=== PATIENT | male | born 1950 | race Caucasian/White ===

== ENCOUNTER → 2021-05-12 12:36 | Outpatient (CLI) | payer OTHER, SELFPAY ==
--- NOTE | 2021-05-12 12:38 | ECHOD_ITS ---
Reason For Study: CAD/ASHD Procedure This was a 2D Doppler, Color Flow transthoracic echocardiogram. The study was technically difficult. Exam performed in department. Left Ventricle Normal LV size. Left ventricular systolic function is normal. The estimated ejection fraction is 60 %. Unable to assess diastolic dysfunction. No regional wall motion abnormalities noted. Right Ventricle Normal RV size. ICD or pacer leads identified within the right ventricle. Normal systolic function. Atria The left atrium is moderately enlarged. The right atrium is moderately enlarged. ICD or pacer leads identified within the right atrium. No doppler evidence for ASD. Mitral Valve Mild diffuse mitral valve thickening. Moderate (2+) mitral valve insufficiency. Tricuspid Valve Normal tricuspid valve. Moderately severe (3+) eccentric tricuspid valve insufficiency. Right ventricular systolic pressure estimated to be 38 mmHg. Aortic Valve The aortic valve is not well visualized, especially in the short axis view, however, based upon the images obtained there appears to be an element of focal thickening and calcification present. Mild (1+) aortic valve insufficiency. Pulmonic Valve The pulmonic valve is not well visualized. Great Vessels Mild to moderately dilated aortic root. Pericardium/Pleural No pericardial effusion. MMode/2D Measurements & Calculations Ao root diam: 4.3 cm LAV(MOD-bp): 125.5 ml LA A4 area: 31.7 cm2 LAV(MOD-bp) Indexed: 58.4 ml/m2 LAV(MOD-sp2): 116.1 ml LAV(MOD-sp4): 122.7 ml LA dimension(2D): 4.7 cm RA A4 area: 30.8 cm2 Doppler Measurements & Calculations MV E max shirley: 118.1 cm/sec Ao V2 max: 164.4 cm/sec AI max shirley: 434.7 cm/sec Ao max P.8 mmHg AI max P.6 mmHg Ao V2 mean: 108.5 cm/sec AI dec slope: 285.8 cm/sec2 Ao mean P.3 mmHg AI P1/2t: 445.6 msec Ao V2 VTI: 29.2 cm LV V1 max: 99.9 cm/sec PA V2 max: 77.0 cm/sec TR max shirley: 295.1 cm/sec LV V1 max P.0 mmHg TR max P.8 mmHg LV V1 mean P.0 mmHg LV V1 mean: 66.8 cm/sec LV V1 VTI: 20.7 cm ECHO/Echo Complete Interpretation Summary The study was technically difficult. Left ventricular systolic function is normal. The estimated ejection fraction is 60 %. The left atrium is moderately enlarged. The right atrium is moderately enlarged. Mild diffuse mitral valve thickening. Moderate (2+) mitral valve insufficiency. Moderately severe (3+) eccentric tricuspid valve insufficiency. The aortic valve is not well visualized, especially in the short axis view, how ever, based upon the images obtained there appears to be an element of focal thickening and calcific ation present. Mild (1+) aortic valve insufficiency. Mild to moderately dilated aortic root. Right ventricular systolic pressure estimated to be 38 mmHg. Unable to assess diastolic dysfunction. ICD or pacer leads identified within the right atrium ICD or pacer leads identified within the right ventricle. Comment: Based upon the 2D echocardiographic images obtained there appears to b e an echodensity (bright) appearing compatible with calcification noted in the parasternal long axis view near the base of the anterior mitral valve leaflet/aortic valve area. Ordering Physician: XUAN BROOKS Referring Physician: Gil Lobo Performed By: Reyna Benitez RDCS, RVT
== END ==
PROVIDERS: PCP Family Medicine
DX: I25.10 Atherosclerotic heart disease of native coronary artery without angina pectoris (principal)
CPT/HCPCS: 93306

== ENCOUNTER 2025-03-03 22:26 | Inpatient (IN) | payer MEDICARE, OTHER, SELFPAY ==
[2025-03-03 22:27] VITALS: BP 127/100; PULSE 87; RESP 16; TEMP 36.4; O2SAT 96; BMI 25.5
[2025-03-03 22:31] VITALS: BP 127/100; PULSE 89; RESP 24; TEMP 36.4; O2SAT 95
--- NOTE | 2025-03-03 22:47 | CT_ITS ---
PROCEDURE: BRAIN/HEAD WITHOUT CONTRAST 03/03/2025 REASON FOR EXAM: SYNCOPE TECHNIQUE: Head CT without intravenous contrast. Coronal and Sagittal reconstruction series were provided. One or more dose reduction techniques were used (e.g., Automated exposure control, adjustment of the mA and/or kV according to patient size, use of iterative reconstruction technique. RADIATION DOSE SUMMARY: CTDlvol: 45 mGy DLP: 846 mGycm COMPARISON: None FINDINGS: Brain: Normal CSF Spaces: Mild generalized cerebral atrophy Sinuses/Mastoids: Clear at visualized levels Bones: Unremarkable CT/Brain/Head without Contrast IMPRESSION: NO ACUTE FINDINGS Reading Location: [facility]
--- NOTE | 2025-03-03 22:47 | CT_ITS ---
PROCEDURE: SPINE CERVICAL WITHOUT CONTRAS 03/03/2025 REASON FOR EXAM: NECK PAIN S/P FALL TECHNIQUE: Cervical spine CT without contrast. Coronal and Sagittal reconstruction series were provided. One or more dose reduction techniques were used (e.g., Automated exposure control, adjustment of the mA and/or kV according to patient size, use of iterative reconstruction technique RADIATION DOSE SUMMARY: CTDlvol: 20 mGy DLP: 442 mGycm COMPARISON: None FINDINGS: Alignment: Straightening of the cervical alignment likely due to positioning. Vertebrae: Status post anterior cervical spine fusion hardware with fixation plates and screws transversing the cervical spine. No acute fracture. Multilevel uncovertebral arthropathy. Discs: Multilevel narrowing of the intervertebral disc spaces. Soft Tissues: Unremarkable Other: Carotid artery calcifications. CT/Spine Cervical without Contras IMPRESSION: No acute fracture or subluxation. Reading Location: [facility]
--- NOTE | 2025-03-03 22:47 | EKG12_ITS ---
Test Reason : DYSRHYTHMIA Blood Pressure : */* mmHG Vent. Rate : 70 BPM Atrial Rate : * BPM P-R Int : * ms QRS Dur : 94 ms QT Int : 468 ms P-R-T Axes : * 28 -35 degrees QTcB Int : 505 ms Atrial fibrillation with frequent VENT PACED COMPLEXES and with premature ventricular or aberrantly conducted complexes Nonspecific ST and T wave abnormality Prolonged QT Abnormal ECG Confirmed by Dario Oliveira ([id number]), business editor DARSHANA MCCLURE ([id number]) on 03/10/2025 1:00:01 PM Referred By: BEE Confirmed By: Dario Oliveira
--- NOTE | 2025-03-03 22:49 | EX.ED.DYSGE1 ---
HPI History of Present Illness Chief Complaint: Syncope Informant: patient, family and EMS Narrative Narrative: Patient is a 74-year-old male with past medical history of coronary artery disease congestive heart failure and atrial fibrillation status post pacemaker insertion. He states this evening he was trying to clean out his icemaker when he felt lightheaded and then had a brief episode of syncope where he fell forward and struck the refrigerator with his forehead. He states that he remembers feeling lightheaded and weak and falling. He states he was awake shortly after striking the ground. He denies any loss of bowel or bladder control. He denies any palpitations prior to the event. He states that there has been no recent bouts of vomiting or diarrhea or loss of blood in the urine or stool. He reports a longstanding history of A-fib with multiple ablations and states he does not take a blood thinner. As the patient had a syncopal event and also struck his head family called EMS and he was brought in for evaluation [facility] Medical History (Updated 03/04/25 @ 03:04 by Xochitl Saba) Pacemaker Congestive heart failure (CHF) Hypertension Home Medications ?Medication ?Instructions ?Recorded ?Last Taken ?Type albuterol sulfate 90 mcg/actuation 2 puff inhalation Q4H PRN PRN 03/04/25 03/03/25 History aerosol inhaler wheezing atorvastatin 80 mg tablet 80 mg PO DAILY 03/04/25 03/03/25 History dofetilide 250 mcg capsule 250 mcg PO BID 03/04/25 03/03/25 History doxazosin 4 mg tablet 4 mg PO QHS 03/04/25 03/03/25 History furosemide 40 mg tablet 40 mg PO DAILY 03/04/25 Unknown History hydralazine 100 mg tablet 100 mg PO Q12H Blood pressure 03/04/25 03/03/25 History isosorbide dinitrate 10 mg tablet 10 mg PO BID 03/04/25 03/03/25 History losartan 100 mg tablet 100 mg PO DAILY 03/04/25 03/03/25 History metoprolol tartrate 50 mg tablet 50 mg PO BID 03/04/25 03/03/25 History spironolactone 25 mg tablet 25 mg PO BID 03/04/25 03/03/25 History tamsulosin 0.4 mg capsule 0.4 mg PO DAILY 03/04/25 03/03/25 History trazodone 100 mg tablet 100 mg PO QHS 03/04/25 03/03/25 History Allergy/AdvReac Type Severity Reaction Status Date / Time ciprofloxacin (From Cipro) Allergy Mild Hives Verified 03/03/25 22:27 amiodarone AdvReac Unknown thyroid Verified 03/03/25 22:27 issues Social History Smoking Status: Current every day smoker tobacco type: cigarettes ROS ROS ED Constitutional Constitutional ED: Denies chills or fever(s) Eyes Eyes: Denies blurry vision or change in vision ENT ENT ED: Denies rhinorrhea or sore throat Cardiovascular Cardiovascular: Reports other Details: Positive syncope ; Denies chest pain, palpitations or racing heartbeat Respiratory/Chest Respiratory/Chest: Denies cough or dyspnea Gastrointestinal Gastrointestinal: Denies abdominal pain, diarrhea, nausea or vomiting Genitourinary Genitourinary ED: Denies dysuria, hematuria or urinary frequency Musculoskeletal Musculoskeletal: Reports neck pain; Denies back pain Integumentary Reports Abrasions Neurologic Neurologic: Denies headache(s), paresthesias or weakness Hematologic/Lymphatic Hematologic/Lymphatic: Denies easy bleeding or easy bruising EXAM Physical Exam Const Vital Signs: 03/03/25 22:26 03/03/25 22:27 03/03/25 22:31 Temperature 97.5 F L 97.5 F L Temperature Source Oral Oral Pulse Rate 87 89 Pulse Rate [Lying] Pulse Rate [Sitting (for 1 minute prior to obtaining)] Pulse Rate [Standing (for 1 minute prior to obtaining)] Respiratory Rate 16 24 H Respiratory Effort Normal Non-Labored Blood Pressure 127/100 H 127/100 H Blood Pressure [Lying] Blood Pressure [Sitting (for 1 minute prior to obtaining)] Blood Pressure [Standing (for 1 minute prior to obtaining)] Blood Pressure Mean 109 109 Blood Pressure Mean [Lying] Blood Pressure Mean [Sitting (for 1 minute prior to obtaining)] Blood Pressure Mean [Standing (for 1 minute prior to obtaining)] Pulse Ox 96 95 Oxygen Delivery Method Room Air Room Air 03/03/25 23:38 03/04/25 00:00 03/04/25 01:00 Temperature 97.5 F L 97.4 F L Temperature Source Temporal Temporal Pulse Rate 84 94 Pulse Rate [Lying] 101 H Pulse Rate [Sitting (for 1 minute prior to obtaining)] 66 Pulse Rate [Standing (for 1 minute prior to obtaining)] 85 Respiratory Rate 26 H 25 H Respiratory Effort Blood Pressure 136/70 H 122/66 H Blood Pressure [Lying] 125/71 H Blood Pressure [Sitting (for 1 minute prior to obtaining)] 121/77 H Blood Pressure [Standing (for 1 minute prior to obtaining)] 91/53 L Blood Pressure Mean 92 84 Blood Pressure Mean [Lying] 89 Blood Pressure Mean [Sitting (for 1 minute prior to obtaining)] 91 Blood Pressure Mean [Standing (for 1 minute prior to obtaining)] 65 Pulse Ox 92 94 Oxygen Delivery Method Room Air Room Air 03/04/25 01:12 03/04/25 01:36 Temperature 97.9 F Temperature Source Pulse Rate 71 Pulse Rate [Lying] 87 Pulse Rate [Sitting (for 1 minute prior to obtaining)] 86 Pulse Rate [Standing (for 1 minute prior to obtaining)] 94 Respiratory Rate 17 Respiratory Effort Blood Pressure 122/61 H Blood Pressure [Lying] 88/54 L Blood Pressure [Sitting (for 1 minute prior to obtaining)] 105/69 Blood Pressure [Standing (for 1 minute prior to obtaining)] 122/66 H Blood Pressure Mean 81 Blood Pressure Mean [Lying] 65 Blood Pressure Mean [Sitting (for 1 minute prior to obtaining)] 81 Blood Pressure Mean [Standing (for 1 minute prior to obtaining)] 84 Pulse Ox 94 Oxygen Delivery Method Positive well nourished and well developed General Appearance ED: well developed; Negative for pallor HEENT HEENT Narrative: Patient has a small 1 x 1 cm hematoma to the midportion of his forehead/frontal bone consistent report of striking his head on the refrigerator. There is a superficial epidermal layer abrasion at the site as well. No active bleeding noted. No signs of depressed or basilar skull fracture Eyes PERRL and EOMs intact bilaterally Eyes Narrative: No hyphema noted General Eye ED: Negative for scleral icterus Neck Neck Narrative: No bony deformity or step-off of the cervical spine no midline tenderness to palpation There is right paracervical tension and spasm noted with pain palpation along the right SCM muscle belly. Chest Wall palpation of chest normal Chest Narrative: No bony deformity or crepitance noted Resp normal respiratory effort Resp Narrative: Breath sounds are diminished throughout with faint crackles noted in the bilateral bases No signs of respiratory distress Cardio regular rate Rate: other Other Details: Irregularly irregular rhythm with regular rate consistent with past medical history of atrial fibrillation There are frequent ectopic beats noted Radial and carotid pulses are equal and symmetric GI normal to inspection, nondistended, normoactive bowel sounds, non-tender, non-distended and no masses GI Narrative: No voluntary guarding or rigidity or pulsatile mass Auscultation: normoactive bowel sounds Palpation: soft Back/Spine Back/Spine Narrative: No bony deformity or step-off of the thoracic or lumbar spine no midline tenderness to palpation Extremity normal to inspection Extremity Narrative: Pelvis is stable there is no shortening or external rotation of either lower extremity Patient can move all extremities without pain No signs of long bone injury No asymmetric edema no pitting edema negative Homans' sign bilaterally All compartments are soft and compressible going against compartment syndrome Neuro oriented x3, CN's II-XII intact bilaterally and no sensory deficits noted Neuro Narrative: GCS of 15 Cranial nerves II through XII are grossly intact without focal neurologic deficit No pronator drift no dysmetria no truncal ataxia NIH stroke scale score of 0 Sensorium / Orientation: alert Motor Exam: strength 5/5 throughout Psych mental status grossly normal Skin No skin turgor normal Skin Narrative: Hematoma to the forehead with superficial abrasion as documented above Skin turgor is slightly increased General Skin Exam: Negative for pallor MDM MDM MDM Narrative Medical decision making narrative: Patient arrived to the ER awake and alert with stable vitals. He reported a syncopal event and history and physical exam are most consistent with syncope due to orthostasis. As he struck his head there is concern for traumatic skull fracture versus subarachnoid or subdural hemorrhage. In order to ensure that his syncope was also not due to acute blood loss anemia acute kidney injury or clinically significant electrolyte abnormality basic blood work was obtained. Patient is anemic with hemoglobin of 10.4 but he reports this is his baseline. Creatinine is also elevated at approximately 1.6 which patient states is baseline as well. Head and cervical spine CT showed no signs of acute trauma. The patient orthostatic vital signs were positive despite receiving 1 L by EMS and therefore he was given a second liter. Repeat orthostatics were still positive despite 2 L of IV fluid. With the patient's history of congestive heart failure I do not feel that continuing with fluid boluses was appropriate if he was not going to be monitored for potential development of CHF exacerbation. Therefore I discussed the case with the hospitalist who agrees to accept the patient for continued care Of note the radiologist documented effusions versus infiltrate on chest x-ray. Clinically this would be effusions as he has a history of CHF and crackles on exam and he does not have a fever cough or white count going against an infectious process so do not feel there is need for antibiotics. History & Record Review Discussion w/independent historian: EMS personnel, Patient and Family Lab Data Attestation: I reviewed the patient's lab results. Labs: Laboratory Results - last 24 hr 03/03/25 22:35 WBC 4.9 RBC 3.39 L Hgb 10.4 L Hct 31.3 L MCV 92.3 MCH 30.7 MCHC 33.2 RDW Std Deviation 49.3 H RDW Coeff of [place] 14.6 Plt Count 164 MPV 9.5 Immature Gran % (Auto) 1.000 H Neut % (Auto) 76.1 H Lymph % (Auto) 11.2 L [place] % (Auto) 10.3 H Eos % (Auto) 0.8 Baso % (Auto) 0.6 Absolute Neuts (auto) 3.8 Absolute Lymphs (auto) 0.55 L Nucleated RBC % 0 Sodium 130 L Potassium 4.3 Chloride 98 Carbon Dioxide 20.7 L Anion Gap 11 BUN 25 H Creatinine 1.56 H Estim Creat Clear Calc 41.54 L Est GFR (MDRD) Non-Af 46 L BUN/Creatinine Ratio 16.0 Glucose 115 H Calcium 8.7 Magnesium 1.9 Radiography Diagnostic Testing: Clinical Impression(s) from Imaging Studies Brain CT 03/03/25 22:47 IMPRESSION: NO ACUTE FINDINGS [facility] 03/03/25 22:47 IMPRESSION: No acute fracture or subluxation. Reading Location: [facility] Chest X-Ray 03/03/25 23:00 IMPRESSION: Retrocardiac opacity and left basilar opacification, likely representing effusion/infiltrates. [facility] Chest x-ray is interpreted by the emergency medicine physician reveals hazy opacity in the lower lungs most consistent with pleural effusion Management Discussion w/another healthcare provider: Hospitalist Discharge Plan Dx/Rx/DC Orders Clinical Impression: Orthostatic syncope, Chronic renal insufficiency, Chronic anemia, Atrial fibrillation Disposition Disposition: Acute Care Hospital [facility] Discharge Date/Time: 03/04/25 02:01
[2025-03-03 22:57] LABS: Absolute Lymphocyte Count 0.55 X10^3/uL (0.83-4.51); Absolute Neutrophil Count 3.8 X10^3/uL (2.0-7.7); Basophil# 0.03 X10^3/uL; Basophil% 0.6 % (0-1); Eosinophil# 0.04 X10^3/uL; Eosinophils% 0.8 % (0-5); Hematocrit 31.3 % (40-54); Hemoglobin 10.4 g/dL (13.0-16.5); Lymphocyte # 0.55 X10^3/ul (0.83-4.51); Lymphocyte % 11.2 % (19-41); Mean Corp Hgb Conc 33.2 g/dL (32-36); Mean Corpuscular Hgb 30.7 pg (27.0-32.0); Mean Corpuscular Volume 92.3 fL (80-94); Mean Platelet Vol. 9.5 fl (6.2-12.0); Monocyte# 0.51 X10^3/uL; Monocyte% 10.3 % (0-10); NRBC Flagged by Analyzer 0 % (0-5); Neutrophil # 3.75 X10^3/uL (2.7-7.7); Neutrophil % 76.1 % (47-70); POSITIVE DIFFERENTIAL YES; Platelet Count 164 K/mm3 (150-450); RBC Distribution Width CV 14.6 % (11.6-14.6); RBC Distribution Width SD 49.3 fl (35.1-43.9); Red Blood Count 3.39 M/mm3 (4.6-6.2); White Blood Count 4.9 K/mm3 (4.4-11.0)
--- NOTE | 2025-03-03 23:00 | RAD_ITS ---
PROCEDURE: CHEST 1 VIEW (PORTABLE) 03/03/2025 REASON FOR EXAM: SYNCOPE TECHNIQUE: Frontal view of the chest. COMPARISON: None FINDINGS: Hardware: An ICD is present. Heart: Cardiomegaly Lungs: Retrocardiac opacity and left basilar opacification. Prominent bilateral interstitial markings. No pneumothorax. Bones: Lower cervical spine fusion hardware. Median sternotomy wires. Other: RAD/Chest 1 View (Portable) IMPRESSION: Retrocardiac opacity and left basilar opacification, likely representing effusi on/infiltrates. Reading [facility]
[2025-03-03 23:23] LABS: Anion Gap 11 (5-15); BUN 25 mg/dL (4-19); Calcium,Total 8.7 mg/dL (7.6-11.0); Carbon Dioxide 20.7 mmol/L (21.0-32.0); Chloride 98 mmol/L (98-108); Creatinine, Serum 1.56 mg/dL (0.70-1.20); EST Glomerular Filtration Rate 46 (>60); Estimated Creatinine Clearance 41.54 ml/min (50-250); Glucose 115 mg/dL (70-99); Magnesium 1.9 mg/dL (1.5-2.2); Potassium 4.3 mmol/L (3.3-5.1); Sodium Level 130 mmol/L (133-145)
[2025-03-03 23:38] VITALS: BP 121/77; BP 125/71; BP 91/53; PULSE 101; PULSE 66; PULSE 85
[2025-03-03] MEDS: 0.9% Normal Saline (1000mL) 1,000 ML 999 ML IV (23:56)
[2025-03-04] VITALS (21 sets, daily range): BP systolic 88–147; BP diastolic 54–100; PULSE 61–105; RESP 16–26; TEMP 36.3–36.8; O2SAT 92–94; BMI 25.7
--- NOTE | 2025-03-04 01:35 | PCM.HP.STD ---
HPI - General General Date of Admission: 03/04/25 Date of Service: 03/04/25 Chief Complaint: Syncopal episode HPI Narrative SINTIA TIM, is a 74 M who presents to the emergency room with chief complaint of syncopal episode. Patient has a significant past medical history of coronary artery disease, congestive heart failure, atrial fibrillation, status post pacemaker insertion with Watchman device and has an inspire device for sleep apnea. Patient reports trying to clean out his icemaker when he felt lightheaded and fell forward and struck the refrigerator with his forehead. He states he woke up shortly after striking the ground. Patient denies any fevers or chills, nausea vomiting or diarrhea. He denies any palpitations. He does have a longstanding history of atrial fibrillation status post multiple ablations and now has Watchman device to reduce his risk of stroke. CT scan of the head and neck were negative for acute findings. Chest x-ray report indicates a retrocardiac opacity consistent with either effusion or possible infiltrate. After an observation period in the emergency room patient was ambulated and found to be persistently orthostatically hypotensive. Patient will be admitted for IV fluids for observation and possible discharge later tomorrow. COUNT INCLUDES [facility] Allergy/AdvReac Type Severity Reaction Status Date / Time ciprofloxacin (From Cipro) Allergy Mild Hives Verified 03/03/25 22:27 amiodarone AdvReac Unknown thyroid Verified 03/03/25 22:27 issues Social History Smoking Status: Current every day smoker tobacco type: cigarettes ROS Constitutional Constitutional: Denies chills or fever(s) Eyes Eyes: Denies blurry vision ENT HEENT: Denies abnormal hearing Cardiovascular Cardiovascular: Denies chest pain Respiratory/Chest Respiratory/Chest: Denies cough or shortness of breath at rest Gastrointestinal Gastrointestinal: Denies abdominal pain Genitourinary Genitourinary: Denies dysuria Musculoskeletal Musculoskeletal: Reports neck pain Integumentary Integumentary: Denies dry skin Neurologic Neurologic: Denies abnormal gait Psychiatric Psychiatric: Denies anxiety Vital Signs Vital Signs Vital Signs: 03/03/25 22:26 03/03/25 22:27 03/03/25 22:31 Temperature 97.5 F L 97.5 F L Temperature Source Oral Oral Pulse Rate 87 89 Pulse Rate [Lying] Pulse Rate [Sitting (for 1 minute prior to obtaining)] Pulse Rate [Standing (for 1 minute prior to obtaining)] Respiratory Rate 16 24 H Respiratory Effort Normal Non-Labored Blood Pressure 127/100 H 127/100 H Blood Pressure [Lying] Blood Pressure [Sitting (for 1 minute prior to obtaining)] Blood Pressure [Standing (for 1 minute prior to obtaining)] Blood Pressure Mean 109 109 Blood Pressure Mean [Lying] Blood Pressure Mean [Sitting (for 1 minute prior to obtaining)] Blood Pressure Mean [Standing (for 1 minute prior to obtaining)] Pulse Ox 96 95 Oxygen Delivery Method Room Air Room Air 03/03/25 23:38 03/04/25 00:00 03/04/25 01:00 Temperature 97.5 F L 97.4 F L Temperature Source Temporal Temporal Pulse Rate 84 94 Pulse Rate [Lying] 101 H Pulse Rate [Sitting (for 1 minute prior to obtaining)] 66 Pulse Rate [Standing (for 1 minute prior to obtaining)] 85 Respiratory Rate 26 H 25 H Respiratory Effort Blood Pressure 136/70 H 122/66 H Blood Pressure [Lying] 125/71 H Blood Pressure [Sitting (for 1 minute prior to obtaining)] 121/77 H Blood Pressure [Standing (for 1 minute prior to obtaining)] 91/53 L Blood Pressure Mean 92 84 Blood Pressure Mean [Lying] 89 Blood Pressure Mean [Sitting (for 1 minute prior to obtaining)] 91 Blood Pressure Mean [Standing (for 1 minute prior to obtaining)] 65 Pulse Ox 92 94 Oxygen Delivery Method Room Air Room Air 03/04/25 01:12 Temperature Temperature Source Pulse Rate Pulse Rate [Lying] 87 Pulse Rate [Sitting (for 1 minute prior to obtaining)] 86 Pulse Rate [Standing (for 1 minute prior to obtaining)] 94 Respiratory Rate Respiratory Effort Blood Pressure Blood Pressure [Lying] 88/54 L Blood Pressure [Sitting (for 1 minute prior to obtaining)] 105/69 Blood Pressure [Standing (for 1 minute prior to obtaining)] 122/66 H Blood Pressure Mean Blood Pressure Mean [Lying] 65 Blood Pressure Mean [Sitting (for 1 minute prior to obtaining)] 81 Blood Pressure Mean [Standing (for 1 minute prior to obtaining)] 84 Pulse Ox Oxygen Delivery Method Weight Weight: 173 lb 4.533 oz Body Mass Index (BMI) 25.5 Physical Exam Const oriented x3 General Appearance: cooperative and well developed HEENT normocephalic Eyes PERRL and EOMs intact bilaterally Neck no lymphadenopathy Lymph Lymphatic: no lymphadenopathy noted Resp normal respiratory effort, normal air movement and clear to auscultation bilaterally Cardio S1 normal heart sound and S2 normal heart sound Rhythm: abnormal rhythm irregularly irregular GI normal to inspection, nondistended, normoactive bowel sounds Extremity normal capillary refill General Extremity: no tenderness to palpation of joints or extremities Skin General Skin Exam: no breakdown Neuro no focal motor deficits and no sensory deficits noted Psych thought process normal, cooperative and affect normal Results Lab / Micro Data 03/03/25 22:35 03/03/25 22:35 Labs: Laboratory Results - last 24 hr 03/03/25 22:35: WBC 4.9, RBC 3.39 L, Hgb 10.4 L, Hct 31.3 L, MCV 92.3, MCH 30.7, MCHC 33.2, RDW Std Deviation 49.3 H, RDW Coeff of Edison 14.6, Plt Count 164, MPV 9.5, Immature Gran % (Auto) 1.000 H, Neut % (Auto) 76.1 H, Lymph % (Auto) 11.2 L, [place] % (Auto) 10.3 H, Eos % (Auto) 0.8, Baso % (Auto) 0.6, Absolute Neuts (auto) 3.8, Absolute Lymphs (auto) 0.55 L, Nucleated RBC % 0, Sodium 130 L, Potassium 4.3, Chloride 98, Carbon Dioxide 20.7 L, Anion Gap 11, BUN 25 H, Creatinine 1.56 H, Estim Creat Clear Calc 41.54 L, Est GFR (MDRD) Non-Af 46 L, BUN/Creatinine Ratio 16.0, Glucose 115 H, Calcium 8.7, Magnesium 1.9 Imaging Radiology Impression Brain CT 03/03/25 22:47 IMPRESSION: NO ACUTE FINDINGS Reading Location: [facility] Cervical Spine CT 03/03/25 22:47 IMPRESSION: No acute fracture or subluxation. Reading Location: [facility] Chest X-Ray 03/03/25 23:00 IMPRESSION: Retrocardiac opacity and left basilar opacification, likely representing effusion/infiltrates. [facility] Assessment & Plan Assessment/Plan (1) Atrial fibrillation: (2) Orthostatic syncope: PLAN: Plan 1. Syncopal episode with persistent orthostatic hypotension?admit patient for observation to progressive care unit, continued telemetry monitoring and hydrate with IV fluid normal saline at a rate of 125 cc/h, repeat BMP and check orthostatic vitals. Consider echocardiogram if patient fails to improve with hydration. 2. Atrial fibrillation?rate is controlled and patient has Watchman device 3. DVT prophylaxis?SCDs due to renal disease will avoid low molecular weight heparin Charges/Coding Visit Charges OBSV E&M: 61825 Observ/hosp same date L2
--- NOTE | 2025-03-04 01:37 | ED.RN ---
pt states he does not know home medications. unable to complete
[2025-03-04] MEDS: 0.9% Normal Saline (1000mL) 1,000 ML 125 ML IV ×3 (02:30→18:40)
[2025-03-04] MEDS: 0.9% Saline Lock 10 ML Syringe IV (03:15)
[2025-03-04 07:45] LABS: Anion Gap 10 (5-15); BUN 22 mg/dL (4-19); BUN/Creat Ratio 15.8 RATIO (10-20); Calcium,Total 8.3 mg/dL (7.6-11.0); Carbon Dioxide 18.3 mmol/L (21.0-32.0); Chloride 104 mmol/L (98-108); Creatinine, Serum 1.41 mg/dL (0.70-1.20); EST Glomerular Filtration Rate 52 (>60); Estimated Creatinine Clearance 45.96 ml/min (50-250); Glucose 95 mg/dL (70-99); Potassium 4.1 mmol/L (3.3-5.1); Sodium Level 132 mmol/L (133-145)
--- NOTE | 2025-03-04 13:10 | CASEMGMT ---
RN?CM?EMPLOYEE WELFARE MANAGER?CM?to room to meet with patient for initial transition planning/care coordination?assessment.?RN?CM?introduced self and role at [facility].? Pt voices understanding and consents to?assessment?at this time.? Pt resting in bed in no distress at this time.? Pt is A/O at this time and answers all questions appropriately.?? Care providers, pharmacy, and demographics verified/updated at this time. Strata: 1 PCP: Dr Alexia Lopez Specialists: Pt has been going to a pipelines manager @ [facility] in [place] (has an appt next week) and then will be changing to a new pipelines manager in [place]. Pt sees the following in [place]: a arm rest builder, an oncologist/insulation nozzleman (AURORA Aaron), physician ophthalmologist (PROTOTYPE MODEL MAKER Anastasiia Croft). Dr Hernandez in [place] for sleep apnea. Pt has 2 EP specialists in [place]. Preferred Pharmacy: [facility] in [place]. [facility] Pres[facility] Benefit:?yes LNOK: , Windy Living Arrangements: Lives w/ and daughter in ranch-style home w/one step to enter. Pt only has to go to the basement once in awhile. Pt is independent w/ADL's. Transportation:?Pt states drives self and states no transportation concerns at this time.? does not drive. D[place] DME: States has the following DME:?Inspire Device for MARIKA, nebulizer ?Pt states no need for further DME at this time.? HHC/SNF: No history. Pt wishes to return home and states has no concerns with going home at time of discharge.? He states d/t dizziness he has not been up ambulating, but states when stands @ edge of bed to use urinal he feels okay/steady. He declines need for HHC or OP therapy. CM?to follow for any discharge planning/needs.? Pt voices no further concerns/needs at this time.? Advised pt to ask for?CM?if any further questions/concerns/needs arise.? Voices understanding. PLAN:??Home Shaun BSN?RN?CM
[2025-03-04] MEDS: Ensure Plus High Protein 120 ML LIQUID PO ×3 (14:26→21:38)
--- NOTE | 2025-03-04 14:43 | PCM.PROGNOTE ---
Subjective Subjective Patient seen and examined. He had no active complaints. HE was admitted with a complaint of syncope and found to ohave orthostatic hypotension. He denied any fever, chills, cough, chest pain, palpitations, dizziness, nausea, vomiting or any other symptoms. Review of systems is otherwise negative. Objective Data Objective Data Vital Signs: Vital Signs Temp Pulse Resp BP Pulse Ox O2 Del Method 98.2 F 70 18 145/69 H 93 Room Air 03/04/25 09:27 03/04/25 14:00 03/04/25 09:27 03/04/25 14:00 03/04/25 06:44 03/04/25 09:27 Oxygen Delivery Method Room Air Weight: 173 lb 15.115 oz Body Mass Index (BMI) 25.7 Intake & Output: Intake and Output for Last 24 Hours 03/02/25 03/03/25 03/04/25 23:59 23:59 23:59 Intake Total 850 / 850 2440 / 2440 Output Total 475 / 475 Balance 850 / 850 1965 / 1965 Lab / Micro Data 03/03/25 22:35 03/04/25 06:32 Labs: Laboratory Results - last 24 hr 03/03/25 22:35: WBC 4.9, RBC 3.39 L, Hgb 10.4 L, Hct 31.3 L, MCV 92.3, MCH 30.7, MCHC 33.2, RDW Std Deviation 49.3 H, RDW Coeff of Edison 14.6, Plt Count 164, MPV 9.5, Immature Gran % (Auto) 1.000 H, Neut % (Auto) 76.1 H, Lymph % (Auto) 11.2 L, [place] % (Auto) 10.3 H, Eos % (Auto) 0.8, Baso % (Auto) 0.6, Absolute Neuts (auto) 3.8, Absolute Lymphs (auto) 0.55 L, Nucleated RBC % 0, Sodium 130 L, Potassium 4.3, Chloride 98, Carbon Dioxide 20.7 L, Anion Gap 11, BUN 25 H, Creatinine 1.56 H, Estim Creat Clear Calc 41.54 L, Est GFR (MDRD) Non-Af 46 L, BUN/Creatinine Ratio 16.0, Glucose 115 H, Calcium 8.7, Magnesium 1.9 03/04/25 06:32: Sodium 132 L, Potassium 4.1, Chloride 104, Carbon Dioxide 18.3 L, Anion Gap 10, BUN 22 H, Creatinine 1.41 H, Estim Creat Clear Calc 45.96 L, Est GFR (MDRD) Non-Af 52 L, BUN/Creatinine Ratio 15.8, Glucose 95, Calcium 8.3 Radiography Diagnostic Testing: Radiology Impression Brain CT 03/03/25 22:47 IMPRESSION: NO ACUTE FINDINGS Reading Location: [facility] Cervical Spine CT 03/03/25 22:47 IMPRESSION: No acute fracture or subluxation. [facility] Chest X-Ray 03/03/25 23:00 IMPRESSION: Retrocardiac opacity and left basilar opacification, likely representing effusion/infiltrates. Reading Location: [facility] Physical Exam Const alert, oriented x3, no apparent distress and well nourished General Appearance: cooperative HEENT normocephalic, head/scalp atraumatic, moist oral mucous membranes and oropharynx normal Eyes PERRL and EOMs intact bilaterally Neck supple and no JVD Lymph Lymphatic: no lymphadenopathy noted and no lymphedema noted Resp normal respiratory effort, normal air movement and clear to auscultation bilaterally Cardio regular rate, regular rhythm, S1 normal heart sound and S2 normal heart sound GI normal to inspection, nondistended, normoactive bowel sounds, soft to palpation and non-tender Extremity normal capillary refill, no clubbing, cyanosis or edema and no calf tenderness General Extremity: no tenderness to palpation of joints or extremities Skin General Skin Exam: no breakdown Neuro CN's II-XII intact bilaterally, no focal motor deficits and no sensory deficits noted Motor Exam: strength 5/5 throughout and general weakness Psych thought process normal and cooperative Appearance: appropriate Assessment & Plan Assessment/Plan (1) Orthostatic syncope: PLAN: Plan #Orthostatic hypotension feels much better being hydrated with IVF fall precautions monitor orthostatics #Afib: rate controlled. had a watchman device in the past. on dofetilide and metoprolol. Not on anticoagulation. #BPH: on flomax #Hypertension; on metoprolol and losartan as well as hydralazine. DVT prophylaxis: start lovenox Charges/Coding Visit Charges Inpatient E&M: 25485 Subs Hosp L2
--- NOTE | 2025-03-04 15:39 | CASEMGMT ---
Met with patient to complete SHERIDAN form. SHERIDAN form explained to patient who voiced understanding and signed form. Original form placed in pt?s chart and copy provided to patient. Dayanara Chavez, Discharge Planning Asst
[2025-03-04] MEDS: Ipratropium/Albuterol Sulfate 3 ML AMPUL.NEB INHALATION (19:27)
[2025-03-04] MEDS: traZODone 100 MG Tablet PO (22:39)
[2025-03-05] VITALS (9 sets, daily range): BP systolic 136–164; BP diastolic 65–95; PULSE 73–91; RESP 18–20; TEMP 36.5–36.8; O2SAT 92–97
[2025-03-05] MEDS: Ipratropium/Albuterol Sulfate 3 ML AMPUL.NEB INHALATION ×3 (00:03→13:05)
[2025-03-05] MEDS: 0.9% Normal Saline (1000mL) 1,000 ML 125 ML IV (02:00)
[2025-03-05 06:04] LABS: Absolute Lymphocyte Count 0.57 X10^3/uL (0.83-4.51); Absolute Neutrophil Count 1.9 X10^3/uL (2.0-7.7); Basophil# 0.01 X10^3/uL; Basophil% 0.3 % (0-1); Eosinophil# 0.05 X10^3/uL; Eosinophils% 1.7 % (0-5); Hematocrit 27.9 % (40-54); Lymphocyte # 0.57 X10^3/ul (0.83-4.51); Lymphocyte % 19.3 % (19-41); Mean Corp Hgb Conc 32.3 g/dL (32-36); Mean Corpuscular Hgb 30.6 pg (27.0-32.0); Mean Corpuscular Volume 94.9 fL (80-94); Mean Platelet Vol. 9.8 fl (6.2-12.0); Monocyte# 0.37 X10^3/uL; Monocyte% 12.5 % (0-10); NRBC Flagged by Analyzer 0 % (0-5); Neutrophil # 1.94 X10^3/uL (2.7-7.7); Neutrophil % 65.5 % (47-70); POSITIVE DIFFERENTIAL YES; Platelet Count 113 K/mm3 (150-450); RBC Distribution Width CV 14.7 % (11.6-14.6); RBC Distribution Width SD 51.6 fl (35.1-43.9); Red Blood Count 2.94 M/mm3 (4.6-6.2)
[2025-03-05 06:16] LABS: Differential Indicated SCAN CRITERIA MET
[2025-03-05 06:27] LABS: Anion Gap 9 (5-15); BUN 21 mg/dL (4-19); Calcium,Total 8.5 mg/dL (7.6-11.0); Chloride 107 mmol/L (98-108); Creatinine, Serum 1.34 mg/dL (0.70-1.20); EST Glomerular Filtration Rate 56 (>60); Estimated Creatinine Clearance 48.36 ml/min (50-250); Glucose 85 mg/dL (70-99); Potassium 4.3 mmol/L (3.3-5.1); Sodium Level 134 mmol/L (133-145)
[2025-03-05 06:52] LABS: Differential Comment SCANNED
[2025-03-05] MEDS: Ensure Plus High Protein 120 ML LIQUID PO ×2 (11:41→14:39)
--- NOTE | 2025-03-05 15:55 | DS.PCM_ITS ---
Providers Date of Admission: 03/04/25 Date of Discharge: 03/05/25 Primary Care Physician: Dr. Alexia Lopez MD Reason For Visit: ORTHOSTATIC HYPOTENSION FOLLOWING SYNCOPAL EPISODE Diagnosis Discharge Diagnosis (1) Orthostatic syncope: Status: Acute Code(s): I95.1 - Orthostatic hypotension Plan #Orthostatic hypotension * feels much better * being hydrated with IVF * fall precautions * monitor orthostatics * #Afib: rate controlled. had a watchman device in the past. on dofetilide and metoprolol. Not on anticoagulation. #BPH: on flomax #Hypertension; on metoprolol and losartan as well as hydralazine. DVT prophylaxis: start lovenox Medications at Discharge Home Medications albuterol sulfate 90 mcg/actuation aerosol inhaler 2 puff inhalation Q4H PRN PRN wheezing 03/04/25 atorvastatin 80 mg tablet 80 mg PO DAILY 03/04/25 dofetilide 250 mcg capsule 250 mcg PO BID 03/04/25 doxazosin 4 mg tablet 4 mg PO QHS 03/04/25 furosemide 40 mg tablet 40 mg PO DAILY 03/04/25 isosorbide dinitrate 10 mg tablet 10 mg PO BID 03/04/25 tamsulosin 0.4 mg capsule 0.4 mg PO DAILY 03/04/25 trazodone 100 mg tablet 100 mg PO QHS 03/04/25 compr.stocking,knee,long,large #12 ea 03/05/25 losartan 25 mg tablet 25 mg PO DAILY #30 tabs 03/05/25 metoprolol tartrate 50 mg tablet 50 mg PO BID #60 tabs 03/05/25 spironolactone 25 mg tablet 25 mg PO DAILY #30 tabs 03/05/25 Hospital Course Operations None Procedures None Summary of Care Provided Minutes Spent on Discharge: 45 Hospital Course: Patient is a 74 y/o male with a PMH as outlined who was admitted with a complaint of syncope. He was cleaning out his icemaker and says he fell and hit the refrigerator with his head. He passed out and woke up shortly after. He has a history of afib and is s/p multiple ablations and watchman device. He denied any fever, chills, nausea, vomiting or diarrhea. CT of the brain showed no acute intracranial pathology. CT head and neck showed no acute intracranial pathology. Chest x-ray showed a retrocardiac opacity concerning for either effusion or possible infiltrate. Orthostatics were checked and were positive. He was therefore admitted to be managed for syncope due to orthostatic hypotension. He was hydrated with IV fluids and orthostasis resolved. Patient was on a lot of blood pressure medications and these were reviewed. His losartan was cut down from 100 mg daily to 25 mg daily. His hydralazine 100 mg twice daily was discontinued. He was maintained on his p.o. Lasix 40 mg daily and his p.o. spironolactone was cut down from 25 mg twice daily to 25 mg daily. He was maintained on his p.o. metoprolol 50 mg twice daily in light of his A-fib as well as his. Doxazosin and dofetilide as well as Lasix. He is to follow-up with his primary care doctor and with his doffer within 1 to 2 weeks. Of note patient was also placed on compression stockings to help with the orthostatic hypotension. He was counseled to keep a blood pressure log at home and to present to the results to his PCP for adjustment of his medications as needed. Patient seen and examined prior to discharge. Patient felt much better and was eager to be discharged. He denied any dizziness or lightheadedness and review of systems otherwise negative. Labs and vitals reviewed. Home medication reviewed and reconciled. Physical Exam Const alert, oriented x3, no apparent distress and well nourished General Appearance: cooperative, comfortable, well kempt and well developed Orientation / Consciousness: awake Exam Limitations: no limitations HEENT normocephalic, head/scalp atraumatic, hearing grossly normal bilaterally, moist oral mucous membranes and oropharynx normal Mouth: oral and palatal mucosa normal Eyes EOMs intact bilaterally Neck supple and no JVD Lymph Lymphatic: no lymphedema noted Resp normal respiratory effort, normal air movement and clear to auscultation bilaterally Cardio regular rate, regular rhythm, S1 normal heart sound and S2 normal heart sound GI normal to inspection, nondistended, normoactive bowel sounds, soft to palpation and non-tender Extremity normal to inspection, full ROM, normal capillary refill, no clubbing, cyanosis or edema and no calf tenderness General Extremity: no tenderness to palpation of joints or extremities Skin no rashes or lesions noted General Skin Exam: no breakdown Neuro CN's II-XII intact bilaterally and no focal motor deficits Sensorium / Orientation: awake and alert Motor Exam: strength 5/5 throughout and general weakness Psych thought process normal, cooperative and affect normal Appearance: appropriate Weight / BMI Weight Weight: 173 lb 15.115 oz Body Mass Index (BMI) 25.7 ABG / Lab / Microbiology Data 03/05/25 05:04 03/05/25 05:04 Laboratory: Laboratory Results - last 24 hr 03/05/25 05:04: WBC 3.0 L, RBC 2.94 L, Hgb 9.0 L, Hct 27.9 L, MCV 94.9 H, MCH 30.6, MCHC 32.3, RDW Std Deviation 51.6 H, RDW Coeff of Edison 14.7 H, Plt Count 113 L, MPV 9.8, Immature Gran % (Auto) 0.700, Neut % (Auto) 65.5, Lymph % (Auto) 19.3, [place] % (Auto) 12.5 H, Eos % (Auto) 1.7, Baso % (Auto) 0.3, Absolute Neuts (auto) 1.9 L, Absolute Lymphs (auto) 0.57 L, Nucleated RBC % 0, Differential Comment SCANNED, Sodium 134, Potassium 4.3, Chloride 107, Carbon Dioxide 18.0 L, Anion Gap 9, BUN 21 H, Creatinine 1.34 H, Estim Creat Clear Calc 48.36 L, Est GFR (MDRD) Non-Af 56 L, BUN/Creatinine Ratio 16.0, Glucose 85, Calcium 8.5 D/C Instructions Discharge Diet: Low fat / Low cholesterol Discharge Activity: Return to Normal Activity Weight Bearing Status: Weight bearing as tolerated Call your doctor if you observe: Fever of 101 or Higher, Shortness of breath, Dizziness, Swelling in the ankles and Chest pain DC O2, CPAP, BIPAP Needs Home O2 Discharge instructions: No DC home with Oxygen: No Meaningful Use Info Meaningful Use Meaningful Use Diagnoses (Choose all that apply): None applicable Ischemic Stroke Statin Dosing Therapy Reference: STATIN DOSE THERAPY REFERENCE: * Patients > 75 years receive moderate or high dose statin therapy. * Patients 75 years or YOUNGER should receive HIGH intensity statin dose unless contraindicated. You will be required to document reason for non-treatment if statin daily dose does not meet guidelines. HIGH DOSE STATIN THERAPY DAILY Atorvastatin > than or = to 40 mg Rosuvastatin > than or = to 20 mg Amlodipine + Atorvastatin > than or = to 2.5/40 mg Ezetimibe + Simvastatin 10/80 mg Simvastatin 80mg Discharge Plan Admission Admit Date/Time: 03/04/25 16:43 Primary Reason for Your Visit: orthostatic hypotension Attending Provider: Jazmyn Peterson Primary Care Provider: Alexia Lopez Consulting Providers: Lawrence Diehl Instructions Patient Instructions: Orthostatic Hypotension Additional Instructions / Restrictions: Keep blood pressure log at home and present log to PCP for adjustment of medications as needed. Discharge Orders/Prescriptions Prescriptions: New losartan 25 mg tablet 25 mg PO DAILY Qty: 30 2RF metoprolol tartrate 50 mg tablet 50 mg PO BID Qty: 60 2RF spironolactone 25 mg tablet 25 mg PO DAILY Qty: 30 2RF (DME) compr.stocking,knee,long,large Misc See Rx Instructions .Route Qty: 12 0RF Rx Instructions: As directed Continued furosemide 40 mg tablet 40 mg PO DAILY isosorbide dinitrate 10 mg tablet 10 mg PO BID atorvastatin 80 mg tablet 80 mg PO DAILY dofetilide 250 mcg capsule 250 mcg PO BID tamsulosin 0.4 mg capsule 0.4 mg PO DAILY trazodone 100 mg tablet 100 mg PO QHS doxazosin 4 mg tablet 4 mg PO QHS albuterol sulfate 90 mcg/actuation HFA aerosol inhaler 2 puff inhalation Q4H PRN PRN (Reason: wheezing) Discontinued spironolactone 25 mg tablet 25 mg PO BID hydralazine 100 mg tablet 100 mg PO Q12H metoprolol tartrate 50 mg tablet 50 mg PO BID losartan 100 mg tablet 100 mg PO DAILY Referrals / Follow Up: Gil Lobo MD [Non-Staff] - Within 1 Week Alexia Lopez MD [Primary Care Provider] - Disposition Disposition (needs filled in before D/C Order can be placed): Home, Self Care Charges/Coding Visit Charges Inpatient E&M: 67327 Disch Hosp >30min
--- NOTE | 2025-03-05 16:00 | PHA.DC.MR.R ---
Pharmacy [place] Med Reconciliation Pharmacy Service has performed discharge medication reconciliation for this patient. The patient's discharge medication list was reviewed for discrepancies and discrepancies were resolved. Medications at Discharge Home Medications albuterol sulfate 90 mcg/actuation aerosol inhaler 2 puff inhalation Q4H PRN PRN wheezing 03/04/25 atorvastatin 80 mg tablet 80 mg PO DAILY 03/04/25 dofetilide 250 mcg capsule 250 mcg PO BID 03/04/25 doxazosin 4 mg tablet 4 mg PO QHS 03/04/25 furosemide 40 mg tablet 40 mg PO DAILY 03/04/25 isosorbide dinitrate 10 mg tablet 10 mg PO BID 03/04/25 tamsulosin 0.4 mg capsule 0.4 mg PO DAILY 03/04/25 trazodone 100 mg tablet 100 mg PO QHS 03/04/25 compr.stocking,knee,long,large #12 ea 03/05/25 losartan 25 mg tablet 25 mg PO DAILY #30 tabs 03/05/25 metoprolol tartrate 50 mg tablet 50 mg PO BID #60 tabs 03/05/25 spironolactone 25 mg tablet 25 mg PO DAILY #30 tabs 03/05/25
== END 2025-03-05 18:26 | disposition home or self-care (01) | DRG 312 ==
LOC: ED 03-04 01:33 → PCU 03-04 01:51
PROVIDERS: Admitting Provider Family Medicine; Emergency Provider Emergency Medicine; PCP Family Medicine; Visit Provider Student in an Organized Health Care Education/Training Program
DX: I95.1 Orthostatic hypotension (principal); I13.0 Hypertensive heart and chronic kidney disease with heart failure and stage 1 through stage 4 chronic kidney disease, or unspecified chronic kidney disease; D64.9 Anemia, unspecified; I50.9 Heart failure, unspecified; N18.9 Chronic kidney disease, unspecified; I48.91 Unspecified atrial fibrillation; F17.210 Nicotine dependence, cigarettes, uncomplicated; N40.0 Benign prostatic hyperplasia without lower urinary tract symptoms; Z79.899 Other long term (current) drug therapy; Z79.02 Long term (current) use of antithrombotics/antiplatelets
CPT/HCPCS: 36415; 70450; 71045; 72125; 80048; 83735; 85025; 93005; 94640; 99285; A4216

== ENCOUNTER → 2025-05-12 | Outpatient (CLI) | payer MEDICARE, OTHER, SELFPAY | END | disposition home or self-care (01) | LOC: PSN 12:30 | PROVIDERS: PCP Family Medicine; Referring Provider Internal Medicine Critical Care Medicine; Visit Provider Internal Medicine Critical Care Medicine | DX: J44.9 Chronic obstructive pulmonary disease, unspecified (principal); F17.210 Nicotine dependence, cigarettes, uncomplicated | CPT/HCPCS: 94060; 94726; 94729 ==

== ENCOUNTER → 2025-05-13 | Outpatient (CLI) | payer MEDICARE, OTHER, SELFPAY ==
[2025-05-13 12:20] VITALS: PULSE 81; PULSE 83; PULSE 85; PULSE 88; PULSE 89; PULSE 90; O2SAT 89; O2SAT 90; O2SAT 91; O2SAT 92; O2SAT 93; O2SAT 94
--- NOTE | 2025-05-13 12:27 | CPS ---
PATIENT WALKED FOR 2 MINUTES PRIOR TO TAKING A BREAK FOR LEG PAIN/FATIGUE. AT 3 MINUTES INTO TESTING, HE SAT DOWN FOR A BREAK DUE TO SEVERITY OF LEG DISCOMFORT IN HIS CALVES AND THIGHS. FOR THE REMAINDER OF TESTING TIME, HE DECLINED OFFERS TO CONTINUE WALKING FOR SPO2 ACCURACY WITH ACTIVITY. HIS SPO2 DROPPED TO 89% ON ROOM AIR JUST HE TOOK THE FINAL REST BREAK BEFORE DECLINING TO WALK ANYMORE. HE DID SAY HE'S HAS UPCOMING VASCULAR EVALUATION IN [facility]. PRIOR TO STOPPING, HE WALKED 243FT WITHOUT SUPPLEMENTAL OXYGEN REQUIRED.
--- NOTE | 2025-05-14 08:58 | PCM.PSN.6M ---
PSN 6 Minute Walk Test 6 Minute Walk Test 6 Minute Walk Test: 6 Minute Walk Test PSN:6-Minute Walk Test Start: 05/13/25 12:20 Freq: Status: Active Protocol: [id number] Document 05/13/25 12:20 [facility] (Rec: 05/13/25 12:36 [facility] [id number]) 6 Minute Walk Test Date Performed 05/13/25 Time Performed 12:15 Height 5 ft 9 in Weight: 165 lb Weight in Pounds 165.[address]: Leon Clarke Assistive device None used: Pre-test Oxygen Delivery Room Air Method Pulse Ox (%) 92 Pulse Rate (60-100 83 beats/min) Dyspnea Andrés Scale ( 0 0-10) Exertion Andrés Scale 9 (6-20) 1st minute Oxygen Delivery Room Air Method Pulse Ox (%) 94 Pulse Rate (60-100 88 beats/min) Dyspnea Andrés Scale ( 0 0-10) Exertion Andrés Scale 10 (6-20) Number of Rests 0 Taken 2nd minute Oxygen Delivery Room Air Method Pulse Ox (%) 90 Pulse Rate (60-100 90 beats/min) Dyspnea Andrés Scale ( 0 0-10) Exertion Andrés Scale 11 (6-20) Number of Rests 1 Taken 3rd minute Oxygen Delivery Room Air Method Pulse Ox (%) 89 Pulse Rate (60-100 90 beats/min) Dyspnea Andrés Scale ( 0 0-10) Exertion Andrés Scale 15 (6-20) Number of Rests 1 Taken 4th minute Oxygen Delivery Room Air Method Pulse Ox (%) 91 Pulse Rate (60-100 89 beats/min) Dyspnea Andrés Scale ( 0 0-10) Number of Rests 1 Taken 5th minute Oxygen Delivery Room Air Method Pulse Ox (%) 93 Pulse Rate (60-100 88 beats/min) Dyspnea Andrés Scale ( 0 0-10) Number of Rests 1 Taken 6th minute Oxygen Delivery Room Air Method Pulse Ox (%) 94 Pulse Rate (60-100 85 beats/min) Dyspnea Andrés Scale ( 0 0-10) Exertion Andrés Scale 12 (6-20) Number of Rests 1 Taken Post-test Oxygen Delivery Room Air Method Pulse Ox (%) 94 Pulse Rate (60-100 81 beats/min) Dyspnea Andrés Scale ( 0 0-10) Full Laps Walked 4 Partial Lap, Number 7 of Tiles Walked Total Distance 243 Walked (ft) 05/13/25 12:27 Cardiopulmonary Services by Peyton Hallman PATIENT WALKED FOR 2 MINUTES PRIOR TO TAKING A BREAK FOR LEG PAIN/FATIGUE. AT 3 MINUTES INTO TESTING, HE SAT DOWN FOR A BREAK DUE TO SEVERITY OF LEG DISCOMFORT IN HIS CALVES AND THIGHS. FOR THE REMAINDER OF TESTING TIME, HE DECLINED OFFERS TO CONTINUE WALKING FOR SPO2 ACCURACY WITH ACTIVITY. HIS SPO2 DROPPED TO 89% ON ROOM AIR JUST HE TOOK THE FINAL REST BREAK BEFORE DECLINING TO WALK ANYMORE. HE DID SAY HE'S HAS UPCOMING VASCULAR EVALUATION IN [facility]. PRIOR TO STOPPING, HE WALKED 243FT WITHOUT SUPPLEMENTAL OXYGEN REQUIRED. Initialized on 05/13/25 12:27 - END OF NOTE Interpretation Interpretation: The patient ambulated 243 feet over the course of 6 minutes beginning on room air without assistive devices. Pretesting oxygen saturation was noted to be 92% on room air. With ambulation, the nik oxygen saturation was 89%. It should be noted that the patient rested from minute 3 of testing through minute 6, limiting sensitivity for detecting exertional oxygen desaturation. Recommendations Recommendations: There is no indication for the use of supplemental oxygen at this time. However, close interval follow-up is recommended, given the degree of oxygen desaturation noted during this study.
== END | disposition home or self-care (01) ==
LOC: PSN 11:43
PROVIDERS: PCP Family Medicine; Referring Provider Internal Medicine Critical Care Medicine; Visit Provider Internal Medicine Critical Care Medicine
DX: J44.9 Chronic obstructive pulmonary disease, unspecified (principal); F17.210 Nicotine dependence, cigarettes, uncomplicated
CPT/HCPCS: 94618

== ENCOUNTER → 2025-05-15 | Outpatient (CLI) | payer MEDICARE, OTHER, SELFPAY ==
--- NOTE | 2025-05-15 18:05 | CT_ITS ---
PROCEDURE: LOW DOSE CT LUNG SCREENING 05/15/2025 REASON FOR EXAM: H/O TOBACCO DEPENDENCY Patient has smoked 1 pack per day for 57 years. History of COPD. TECHNIQUE: LOW DOSE CT LUNG SCREENING Coronal and Sagittal reconstruction series were provided. One or more dose reduction techniques were used (e.g., Automated exposure control, adjustment of the mA and/or kV according to patient size, use of iterative reconstruction technique). REFERENCE LINK: [employer] Lung-RADS RADIATION DOSE SUMMARY: CTDlvol: 2.39 mGy DLP: 92.04 mGycm COMPARISON: Prior study dated February 11, 2025. FINDINGS: PULMONARY NODULES: (Only nodules >3mm are reported) Nodules described below are on series 1 unless otherwise specified. Pulmonary Nodules: No suspicious pulmonary nodule seen. Hardware:Left-sided dual-chamber pacemaker is seen. Lymph Nodes:Mediastinal lymph nodes are seen. These are unchanged. Heart and Vasculature:Prior CABG.Mild cardiomegaly Coronary Artery Calcifications: Present Lungs and Airways: Stable linear scarring in the posterior aspect of the left lung apex. Hyperinflation. Mild emphysematous changes. Once again, there is evidence of pleural-parenchymal changes at the 1 left lung base with the volume loss in the left lower lobe with a pleural effusion. This is essentially unchanged. This may represent round atelectasis with pleural effusion. Upper Abdomen:Unremarkable Bones:Degenerative changes of the thoracic spine. CT/Low Dose CT Lung Screening IMPRESSION: Stable pleural-parenchymal changes at the left lung base. This may represent e ither rounded atelectasis and/or chronic volume loss with bronchiectasis and pleural effusion. Coronary artery calcification (CAC) is is present Lung-RADS Category: 3 PROBABLY BENIGN (BASED ON IMAGING FEATURES OR BEHAVIOR). RECOMMEND 6 MONTH LDCT. Other Significant Findings: Reading Location: [facility]
== END | disposition home or self-care (01) ==
LOC: CT 18:03
PROVIDERS: PCP Family Medicine; Referring Provider Internal Medicine Critical Care Medicine; Visit Provider Internal Medicine Critical Care Medicine
DX: J44.9 Chronic obstructive pulmonary disease, unspecified (principal); F17.210 Nicotine dependence, cigarettes, uncomplicated
CPT/HCPCS: 71271